=== PATIENT | female | born 1985 | race Hispanic/Latino ===

== ENCOUNTER 2021-05-25 11:39 | Observation (INO) | payer OTHER ==
[2021-05-25 11:43] VITALS: BMI 28.8
[2021-05-25] MEDS ORDERED: Nitroglycerin 0.4 MG TAB (25 Tab Bottle) SL PRN (15:17)
[2021-05-25] MEDS ORDERED: hydrALAZINE 20 MG/ML VIAL SLOW IVP PRN (15:18)
[2021-05-25] MEDS ORDERED: Ondansetron PF 4 MG/2 ML Vial IVP PRN (15:19)
[2021-05-25] MEDS ORDERED: Ondansetron ODT 4 MG TAB PO PRN (15:19)
[2021-05-25] MEDS ORDERED: Electrolyte Replacement Protocol 1 EACH FS SCH (15:30)
[2021-05-25] MEDS: Morphine 2 MG/ML VIAL SLOW IVP PRN ×2 (15:45→21:15)
[2021-05-25] MEDS: Acetaminophen 325 MG TAB PO PRN ×2 (15:45→21:14)
[2021-05-25] MEDS ORDERED: Potassium Chloride 20 MEQ TAB PO SCH (16:00)
[2021-05-25 16:40] LABS: CKMB 1.1 ng/mL (0-6.6)
[2021-05-25 19:49] LABS: Potassium 3.5 mmol/L (3.5-5.1)
[2021-05-25] MEDS ORDERED: Atorvastatin Calcium 40 MG TAB PO SCH (21:00)
[2021-05-25] MEDS: Metoprolol Tartrate 25 MG TAB PO SCH (21:01)
[2021-05-25] MEDS: Nitroglycerin 2% Ointment 1 INCH/1 GM Packet TOP SCH (23:00)
[2021-05-25 23:33] LABS: Amphetamine Not Detected (NotDetected); Barbiturates Screen Not Detected (NotDetected); Benzodiazepine Screen Not Detected (NotDetected); Cocaine Metabolite Screen Not Detected (NotDetected); Methadone Not Detected (NotDetected); Methamphetamine Not Detected (NotDetected); Opiate Screen Detected (NotDetected); Oxycodone Screen Not Detected (NotDetected); Phencyclidine (PCP) Not Detected (NotDetected); THC/Cannabinoid Screen Not Detected (NotDetected); Tricyclic Screen Not Detected (NotDetected)
[2021-05-26 05:05] LABS: #Monocytes 0.7 10x3/uL (0.0-1.1); #Neutrophils 6.5 10x3/uL (1.5-8.4); %Basophils 0.3 % (0.0-2.0); %Eosinophils 0.4 % (0.0-6.0); %Lymphocytes 21.4 % (18.0-47.0); %Monocytes 7.3 % (0.0-10.0); %Neutrophils 70.4 % (40.0-75.0); Hemoglobin 12.8 g/dL (12.0-15.5); Mean Corpuscular HGB CONC 33.4 g/dL (32.0-36.0); Mean Corpuscular Hemoglobin 27.1 pg (27.0-33.0); Mean Corpuscular Volume 81.1 fl (81.6-98.3); Platelet Count 285 10x3/uL (150-450); RBC Distribution Width 13.3 % (11.5-14.5); Red Blood Cell (RBC) Count 4.72 10x6/uL (3.90-5.03); White Blood Cell (WBC) Count 9.2 10x3/uL (3.5-10.5)
[2021-05-26 05:16] LABS: Anion Gap 13 mmol/L (10-20); BUN (Urea Nitrogen) 16 mg/dL (7.0-18.7); Calc. Creatinine Clearance 106 mL/min (70-130); Calcium 8.8 mg/dL (7.8-10.44); Carbon Dioxide 25 mmol/L (22-29); Cardiac Risk 3.5 (Less than 4.5); Chloride 107 mmol/L (98-107); Cholesterol 158 mg/dl (< 200 Desired); Glucose 90 mg/dL (70-105); HDL Cholesterol 45 mg/dL (>60 Neg Risk); LDL Cholesterol, Calculated 93 mg/dL; Potassium 3.9 mmol/L (3.5-5.1); Sodium 141 mmol/L (136-145); Triglycerides 101 mg/dL (Less than 150)
[2021-05-26] MEDS: Nitroglycerin 2% Ointment 1 INCH/1 GM Packet TOP SCH (05:51)
[2021-05-26] MEDS: Metoprolol Tartrate 25 MG TAB PO SCH (08:37)
[2021-05-26] MEDS ORDERED: Aspirin Chewable 81 MG TAB PO SCH (09:00)
[2021-05-26 10:31] VITALS: BP 153/84; TEMP 98
[2021-05-26] MEDS: Acetaminophen 325 MG TAB PO PRN (12:00)
[2021-05-26] MEDS ORDERED: Lisinopril 10 MG TAB PO SCH (12:00)
[2021-05-27] MEDS ORDERED: Lisinopril 10 MG TAB PO SCH (09:00)
== END 2021-05-26 14:20 | disposition home or self-care (01) ==
LOC: CSHTELE 11:39 → INTOOBSV 11:39
PROVIDERS: ADMIT Internal Medicine; ATTEND Internal Medicine
DX: R07.89 Other chest pain (principal); I10 Essential (primary) hypertension; F41.9 Anxiety disorder, unspecified; E87.6 Hypokalemia
CPT/HCPCS: 36415; 80048; 80061; 80306; 82553; 83036; 83880; 84443; 85025; 85379; 93306; 94760; 96374; 96375; 96376; G0378; J2270; J2405